=== PATIENT | female | born 1965 | race Caucasian/White ===

== ENCOUNTER 2018-10-11 19:15 | Emergency (ER) | payer OTHER ==
[2018-10-11 19:22] VITALS: BP 166/91
[2018-10-11] MEDS ORDERED: valACYclovir 500 MG TABLET PO STA (20:29)
[2018-10-11] MEDS ORDERED: HYDROcod/ACET 5/325 Prepack 4 PO STA (20:29)
[2018-10-11] MEDS ORDERED: predniSONE 20 MG TABLET PO STA (20:29)
--- NOTE | 2018-10-11 20:32 | ED Physician Documentation ---
PD HPI SKIN - Stated complaint Stated Complaint: ABD RASH - Chief complaint Chief Complaint: Wound - History obtained from History obtained from: Patient - History of Present Illness Timing - onset: Today (She is had some weird back pain on the right all week with some myalgias and fatigue but noticed a rash in that area on the right flank and abdominal wall today.) Review of Systems Constitutional: denies: Fever, Chills Cardiac: denies: Chest pain / pressure, Palpitations Respiratory: denies: Dyspnea, Cough GI: denies: Abdominal Pain, Nausea, Vomiting PD PAST MEDICAL HISTORY - Past Medical History Past Medical History: Yes Cardiovascular: Hypertension Respiratory: None Neuro: Multiple sclerosis Endocrine/Autoimmune: None GI: None 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 : None Psych: None Musculoskeletal: None Derm: None - Past Surgical History Past Surgical History: Yes General: Cholecystectomy /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: Other - Present Medications Home Medications: Ambulatory Orders Medication Instructions Recorded Confirmed Hydrocodone/Acetaminophen 1 - 2 each PO Q6H PRN #14 tablet 10/11/18 [Hydrocodon-Acetaminophen 5-325] Lisinopril 1 tab PO DAILY 10/11/18 10/11/18 Ocrelizumab [Ocrevus] IV 10/11/18 Valacyclovir HCl [Valtrex] 1,000 mg PO TID #30 tablet 10/11/18 predniSONE [Deltasone] 20 mg PO [id number] #21 tab 10/11/18 - Allergies Allergies/Adverse Reactions: Allergies Allergy/AdvReac Type Severity Reaction Status Date / Time Iodine and Iodide Containing Allergy Itching Verified 10/11/18 19:22 Produc - Social History Does the pt smoke?: No Smoking Status: Never smoker Does the pt drink ETOH?: Yes Does the pt have substance abuse?: No - Immunizations Immunizations are current?: Yes - POLST Patient has POLST: No PD ED PE NORMAL - Vitals Vital signs reviewed: Yes - General General: Alert and oriented X 3, No acute distress - Cardiac Cardiac: RRR, No murmur - Abdomen Abdomen: Non tender, Other (Shingles right upper quadrant trending towards the umbilicus) - Neuro Neuro: Alert and oriented X 3, Normal speech Results - Vitals Vitals: Vital Signs - 24 hr 10/11/18 19:19 Temperature 36.0 C L Heart Rate 87 Respiratory 18 Rate Blood Pressure 166/91 H O2 Saturation 98 Oxygen O2 Source Room air Departure - Departure Disposition: Home, Self Care Clinical Impression: Shingles Qualifiers: Herpes zoster complications: without complications Qualified Code(s): B02.9 - Zoster without complications Condition: Good Record reviewed to determine appropriate education?: Yes Instructions: ED Shingles Prescriptions: Hydrocodone/Acetaminophen [Hydrocodon-Acetaminophen 5-325] 1 - 2 each PO Q6H PRN #14 tablet PRN Reason: pain predniSONE [Deltasone] 20 mg PO [id number] #21 tab Valacyclovir HCl [Valtrex] 1,000 mg PO TID #30 tablet Comments: Call your doctor to arrange a follow-up appointment, make the next available appointment. In the interim, return anytime if worse or if new symptoms develop. Your blood pressure was elevated today on check into the emergency department. This does not mean that you have hypertension, it is a common phenomenon to come to the emergency department and have elevated blood pressure. I recommend that you see your primary care physician within the week to have it rechecked when you are feeling better.
== END 2018-10-11 20:55 | disposition home or self-care (01) ==
LOC: ED 19:15
DX: B02.9 Zoster without complications (principal); I10 Essential (primary) hypertension; G35 Multiple sclerosis
CPT/HCPCS: 99283; A9270; J7512